=== PATIENT | female | born 1940 | race Caucasian/White ===

== ENCOUNTER → 2022-09-19 12:16 | Outpatient (CLI) | payer OTHER, SELFPAY | PROVIDERS: Visit Provider Surgery Surgical Oncology | DX: C24.1 Malignant neoplasm of ampulla of Vater (principal); Z20.822 Contact with and (suspected) exposure to COVID-19 | CPT/HCPCS: C9803; U0003; U0005 ==

== ENCOUNTER 2022-10-18 12:48 | Outpatient (CLI) | payer MEDICARE, SELFPAY | END 2022-10-18 13:00 | disposition home or self-care (01) | LOC: INF 12:50 | PROVIDERS: PCP Student in an Organized Health Care Education/Training Program; Visit Provider Student in an Organized Health Care Education/Training Program | DX: C24.1 Malignant neoplasm of ampulla of Vater (principal) | CPT/HCPCS: G0463 ==

== ENCOUNTER 2022-10-24 12:25 | Outpatient (CLI) | payer OTHER, SELFPAY | END 2022-10-24 12:40 | disposition home or self-care (01) | LOC: INF 12:27 | PROVIDERS: PCP Student in an Organized Health Care Education/Training Program; Visit Provider Student in an Organized Health Care Education/Training Program | DX: Z45.2 Encounter for adjustment and management of vascular access device (principal) | CPT/HCPCS: 96523 ==

== ENCOUNTER 2022-10-31 12:48 | Outpatient (CLI) | payer OTHER, MEDICARE, SELFPAY | END 2022-10-31 13:10 | disposition home or self-care (01) | LOC: INF 12:49 | PROVIDERS: Visit Provider Student in an Organized Health Care Education/Training Program | DX: C24.1 Malignant neoplasm of ampulla of Vater (principal); Z45.2 Encounter for adjustment and management of vascular access device | CPT/HCPCS: 96523 ==